=== PATIENT | female | born 1985 | race Two or more races ===

== ENCOUNTER 2022-10-10 16:00 | Observation (INO) | payer MEDICAID ==
[~2022-10-10] VITALS: Ht 149.9 cm; Wt 65.8 kg
[2022-10-10 18:01] LABS: Urine Bacteria NONE SEEN /hpf (None Seen); Urine Blood Negative /uL (Negative); Urine Clarity HAZY (Clear); Urine Color Yellow (Yellow); Urine Mucus FEW (None Seen); Urine Protein, UAD TRACE (Negative); Urine Specific Gravity 1.017 (1.001-1.035); Urine Urobilinogen Normal (Negative); Urine WBC 4 /hpf (0 - 5); Urine pH 6.5 (5.0-8.0)
[2022-10-10 18:03] LABS: Basophils # (auto) 0 10 ^3/uL (0-0.2); Basophils % (auto) 0.5 % (0.0-2.0); Eosinophils # (auto) 0 10 ^3/uL (0-0.8); Eosinophils % (auto) 0.3 % (0.0-7.0); Hematocrit 32.4 % (36.0-46.0); Hemoglobin 10.8 g/dL (12.2-16.2); Lymphocytes # (auto) 1.7 10 ^3/uL (0.4-5.4); Lymphocytes % (auto) 19.7 % (10.0-50.0); Mean Corpuscular Hgb Conc. 33.4 g/dL (32.0-36.0); Mean Corpuscular Volume 92.8 fL (80.0-100.0); Monocytes # (auto) 0.8 10 ^3/uL (0-1.3); Neutrophils # (auto) 6.1 10 ^3/uL (1.6-8.6); Neutrophils % (auto) 70.5 % (37.0-80.0); Nucleated Red Blood Cells % 0.1 %; Red Blood Cells 3.49 10^6/uL (4.0-5.20); Red Cell Distribution Width 13.3 % (11.8-14.3); White Blood Cell 8.7 10^3/uL (4.4-10.8)
[2022-10-10 18:06] LABS: Protein, Urine 26.2 mg/dL (0.0-11.9); Urine Protein/Creatinine Ratio 0.2
[2022-10-10] MEDS ORDERED: LABETALOL HCL 200 MG TAB PO STA (18:28)
[2022-10-10 18:29] LABS: INR 0.97 (0.9-1.15); Partial Thromboplastin Time 30.8 SEC (24.5-34.5); Prothrombin Time 10.2 sec (9.3-11.8)
[2022-10-10] MEDS ORDERED: LABETALOL HCL 200 MG TAB PO ONE (18:30)
[2022-10-10 18:32] LABS: Albumin 2.6 g/dL (3.4-5.0); Calcium 8.1 mg/dL (8.7-10.4); Potassium 3.4 mmol/L (3.5-5.1)
[2022-10-10 18:34] LABS: BUN/Creatinine Ratio 16.9 (10.0-20.0)
[2022-10-10 18:37] LABS: Bilirubin, Total 0.1 mg/dL (0.2-1.0); Total Protein 6.4 g/dL (6.4-8.2)
[2022-10-10] MEDS ORDERED: LABE200T6 GT (19:06)
[2022-10-10] MEDS ORDERED: PREN-96 PO (19:07)
[2022-10-10] MEDS ORDERED: LABE300T3 PO (19:49)
[2022-10-10 20:19] LABS: Uric Acid 3.6 mg/dL (2.6-6.0)
== END 2022-10-10 19:26 | disposition home or self-care (01) ==
LOC: UNDOADMOB 16:00 → LDRP 16:00 → UNDODISOB 19:26
PROVIDERS: ADMIT Obstetrics & Gynecology; ATTEND Obstetrics & Gynecology
DX: O13.3 Gestational [pregnancy-induced] hypertension without significant proteinuria, third trimester (principal); O26.893 Other specified pregnancy related conditions, third trimester; R42 Dizziness and giddiness; H53.8 Other visual disturbances; Z3A.31 31 weeks gestation of pregnancy
CPT/HCPCS: 36415; 59025; 76818; 80053; 81001; 81002; 82570; 84156; 84550; 85025; 85610; 85730; 94760; G0378

== ENCOUNTER 2022-10-12 07:34 | Observation (INO) | payer MEDICAID ==
[~2022-10-12 07:34] MED LIST: LABE300T3 PO; PREN-96 PO
[2022-10-12 11:23] LABS: Protein, Urine 17.5 mg/dL (0.0-11.9)
[2022-10-12 11:23] LABS: Protein, Urine 25.9 mg/dL (0.0-11.9)
[2022-10-12 11:26] LABS: Creatinine, Urine 75.37 mg/dL (30.0-125.0); Urine Protein/Creatinine Ratio 0.23
[2022-10-12 11:45] LABS: Urine Bacteria FEW /hpf (None Seen); Urine Blood Negative /uL (Negative); Urine Clarity HAZY (Clear); Urine Mucus FEW (None Seen); Urine Protein, UAD TRACE (Negative); Urine Specific Gravity 1.013 (1.001-1.035); Urine Urobilinogen Normal (Negative); Urine WBC 3 /hpf (0 - 5); Urine pH 6.5 (5.0-8.0)
[2022-10-12 11:51] LABS: Urine Color Straw (Yellow)
[2022-10-12 14:01] LABS: 24 Hr. Total Protein, Urine 213.6 mg/24 Hr (<149.1)
== END 2022-10-12 12:48 | disposition home or self-care (01) ==
LOC: UNDOADMOB 07:34 → LDRP 07:34
PROVIDERS: ADMIT Obstetrics & Gynecology; ATTEND Obstetrics & Gynecology
DX: O26.893 Other specified pregnancy related conditions, third trimester (principal); R03.0 Elevated blood-pressure reading, without diagnosis of hypertension; H53.8 Other visual disturbances; R42 Dizziness and giddiness; Z3A.32 32 weeks gestation of pregnancy
CPT/HCPCS: 59025; 81001; 81002; 82570; 84156; 94760; G0378

== ENCOUNTER 2022-10-27 11:35 | Observation (INO) | payer MEDICAID ==
[2022-10-27 12:41] LABS: Basophils # (auto) 0 10 ^3/uL (0-0.2); Basophils % (auto) 0.4 % (0.0-2.0); Eosinophils # (auto) 0 10 ^3/uL (0-0.8); Eosinophils % (auto) 0.4 % (0.0-7.0); Hematocrit 34.5 % (36.0-46.0); Hemoglobin 11.3 g/dL (12.2-16.2); Lymphocytes # (auto) 1.9 10 ^3/uL (0.4-5.4); Lymphocytes % (auto) 19.4 % (10.0-50.0); Mean Corpuscular Hemoglobin 30.8 pg (28.0-32.0); Mean Corpuscular Hgb Conc. 32.9 g/dL (32.0-36.0); Mean Corpuscular Volume 93.8 fL (80.0-100.0); Monocytes # (auto) 0.9 10 ^3/uL (0-1.3); Monocytes % (auto) 8.7 % (0.0-12.0); Neutrophils % (auto) 71.1 % (37.0-80.0); Red Blood Cells 3.68 10^6/uL (4.0-5.20); Red Cell Distribution Width 13.8 % (11.8-14.3); White Blood Cell 9.9 10^3/uL (4.4-10.8)
[2022-10-27 12:45] LABS: Urine Bacteria NONE SEEN /hpf (None Seen); Urine Blood Negative /uL (Negative); Urine Clarity Clear (Clear); Urine Color Straw (Yellow); Urine Protein, UAD Negative (Negative); Urine Specific Gravity 1.006 (1.001-1.035); Urine Urobilinogen Normal (Negative); Urine WBC 2 /hpf (0 - 5); Urine pH 6.5 (5.0-8.0)
[2022-10-27] MEDS ORDERED: BETAMETHASONE ACET (30mg/5ml) 5ml Vial 6mg/ml IM ONE (12:45)
[2022-10-27 12:56] LABS: INR 0.94 (0.9-1.15); Partial Thromboplastin Time 29.8 SEC (24.5-34.5); Prothrombin Time 9.9 sec (9.3-11.8)
[2022-10-27 13:08] LABS: Protein, Urine < 6.0 mg/dL (0.0-11.9)
[2022-10-27 13:09] LABS: Alanine Aminotransferase 26 U/L (7-40); Albumin 3.6 g/dL (3.2-4.8); Alkaline Phosphatase 109 U/L (46-116); Anion Gap 6.6 (5-15); Aspartate Aminotransferase 20 U/L (13-40); Bilirubin, Total 0.4 mg/dL (0.2-1.0); Blood Urea Nitrogen 9 mg/dL (9-23); Calcium 8.8 mg/dL (8.5-10.1); Carbon Dioxide 22.4 mmol/L (20-30); Chloride 110 mmol/L (98-107); Glucose 98 mg/dL (74-106); Potassium 4.2 mmol/L (3.5-5.1); Sodium 139 mmol/L (136-145); Total Protein 6.2 g/dL (5.7-8.2); Uric Acid 3.1 mg/dL (3.1-7.8)
[2022-10-27 13:10] LABS: Creatinine, Urine 21.36 mg/dL (30.0-125.0); Urine Protein/Creatinine Ratio 0.28
== END 2022-10-27 14:05 | disposition home or self-care (01) ==
LOC: LDRP 11:35 → UNDOADMOB 11:35 → LDRP 11:43
PROVIDERS: ADMIT Obstetrics & Gynecology; ATTEND Obstetrics & Gynecology
DX: O10.913 Unspecified pre-existing hypertension complicating pregnancy, third trimester (principal); O26.893 Other specified pregnancy related conditions, third trimester; R51.9 Headache, unspecified; Z3A.34 34 weeks gestation of pregnancy
CPT/HCPCS: 36415; 59025; 76818; 80053; 81001; 81002; 82570; 84156; 84550; 85025; 85362; 85379; 85610; 85730; 94760; 96372; G0378; J0702

== ENCOUNTER 2022-10-28 13:33 | Observation (INO) | payer MEDICAID ==
[~2022-10-28] VITALS: Ht 149.9 cm; Wt 74.8 kg
[2022-10-28] MEDS ORDERED: BETAMETHASONE ACET (30mg/5ml) 5ml Vial 6mg/ml IM ONE (14:00)
== END 2022-10-28 14:23 | disposition home or self-care (01) ==
LOC: UNDOADMOB 13:33 → LDRP 13:33
PROVIDERS: ADMIT Obstetrics & Gynecology; ATTEND Obstetrics & Gynecology
DX: O60.03 Preterm labor without delivery, third trimester (principal); Z3A.34 34 weeks gestation of pregnancy
CPT/HCPCS: 59025; 81002; 96372; G0378

== ENCOUNTER 2022-10-31 07:54 | Inpatient (IN) | payer MEDICAID ==
[~2022-10-31] VITALS: Ht 149.9 cm; Wt 68.9 kg
[2022-10-31] MEDS ORDERED: MAGNESIUM SULFATE 40MG/ML 1,000 ML IV SCH (09:30)
[2022-10-31] MEDS ORDERED: MAGNESIUM SULFATE 100 ML IV ONE (09:30)
[2022-10-31] MEDS ORDERED: LACTATED RINGER'S 1,000 ML IV SCH (09:45)
[2022-10-31 09:55] VITALS: RESP 18; O2SAT 97
[2022-10-31 10:08] LABS: INR 0.93 (0.9-1.15); Partial Thromboplastin Time 27.6 SEC (24.5-34.5); Prothrombin Time 9.8 sec (9.3-11.8)
[2022-10-31 10:11] LABS: Basophils # (auto) 0 10 ^3/uL (0-0.2); Basophils % (auto) 0.5 % (0.0-2.0); Eosinophils # (auto) 0 10 ^3/uL (0-0.8); Eosinophils % (auto) 0.2 % (0.0-7.0); Hematocrit 34.3 % (36.0-46.0); Hemoglobin 11.4 g/dL (12.2-16.2); Lymphocytes # (auto) 1.9 10 ^3/uL (0.4-5.4); Lymphocytes % (auto) 19.1 % (10.0-50.0); Mean Corpuscular Hemoglobin 31.6 pg (28.0-32.0); Mean Corpuscular Hgb Conc. 33.1 g/dL (32.0-36.0); Mean Corpuscular Volume 95.4 fL (80.0-100.0); Monocytes # (auto) 1.1 10 ^3/uL (0-1.3); Monocytes % (auto) 11.1 % (0.0-12.0); Neutrophils # (auto) 7.1 10 ^3/uL (1.6-8.6); Neutrophils % (auto) 69.1 % (37.0-80.0); Red Cell Distribution Width 14.1 % (11.8-14.3); White Blood Cell 10.2 10^3/uL (4.4-10.8)
[2022-10-31 10:13] LABS: Alanine Aminotransferase 33 U/L (7-40); Albumin 3.4 g/dL (3.2-4.8); Alkaline Phosphatase 102 U/L (46-116); Anion Gap 9.7 (5-15); Aspartate Aminotransferase 28 U/L (13-40); BUN/Creatinine Ratio 23.6 (10.0-20.0); Blood Urea Nitrogen 13 mg/dL (9-23); Calcium 8.6 mg/dL (8.5-10.1); Carbon Dioxide 19.3 mmol/L (20-30); Chloride 110 mmol/L (98-107); Glucose 111 mg/dL (74-106); Magnesium 1.5 mg/dL (1.6-2.6); Potassium 3.7 mmol/L (3.5-5.1); Sodium 139 mmol/L (136-145); Uric Acid 3.5 mg/dL (3.1-7.8)
[2022-10-31 10:14] LABS: Bilirubin, Total 0.3 mg/dL (0.2-1.0); Total Protein 5.6 g/dL (5.7-8.2)
[2022-10-31 10:39] LABS: Protein, Urine 14.4 mg/dL (0.0-11.9)
[2022-10-31 10:42] LABS: Creatinine, Urine 59.14 mg/dL (30.0-125.0); Urine Protein/Creatinine Ratio 0.24
[2022-10-31 10:43] LABS: Amphetamine Screen, Urine Neg (NEGATIVE)
[2022-10-31 10:45] LABS: Barbiturate Scree,Urine Neg (NEGATIVE); Benzodiazephine Screen, Urine Neg (NEGATIVE); Cocaine Screen, Urine Neg (NEGATIVE); Opiate Scree,Urine Neg (NEGATIVE); Phencyclidine Screen, Urine Neg (NEGATIVE)
[2022-10-31 10:46] LABS: Cannabinoid Screen, Urine Neg (NEGATIVE)
[2022-10-31 10:56] LABS: Urine Bacteria NONE SEEN /hpf (None Seen); Urine Blood Negative /uL (Negative); Urine Clarity Clear (Clear); Urine Protein, UAD Negative (Negative); Urine Specific Gravity 1.014 (1.001-1.035); Urine Urobilinogen Normal (Negative); Urine WBC 2 /hpf (0 - 5); Urine pH 6.5 (5.0-8.0)
[2022-10-31 10:57] LABS: Urine Color Straw (Yellow)
== END 2022-10-31 12:05 | disposition home or self-care (01) | DRG 566 ==
LOC: LDRP 08:13 → OBSVTOIN 09:30 → LDRP 09:31
PROVIDERS: ADMIT Obstetrics & Gynecology; ATTEND Obstetrics & Gynecology
DX: O13.3 Gestational [pregnancy-induced] hypertension without significant proteinuria, third trimester (principal); Z3A.34 34 weeks gestation of pregnancy
CPT/HCPCS: 36415; 59025; 76818; 80053; 80307; 81001; 81002; 82570; 83735; 84156; 84550; 85025; 85379; 85610; 85730; 86850; 86900; 86901; 94760; 96360; 96361; 96365; 96366; G0378

== ENCOUNTER 2022-11-04 11:12 | Observation (INO) | payer MEDICAID ==
[2022-11-04 12:21] LABS: Protein, Urine 15.7 mg/dL (0.0-11.9)
[2022-11-04 12:24] LABS: Creatinine, Urine 73.53 mg/dL (30.0-125.0); Urine Protein/Creatinine Ratio 0.21
[2022-11-04 12:26] LABS: Alanine Aminotransferase 17 U/L (7-40); Albumin 3.6 g/dL (3.2-4.8); Alkaline Phosphatase 115 U/L (46-116); Anion Gap 4 (5-15); Aspartate Aminotransferase 9 U/L (13-40); BUN/Creatinine Ratio 21.5 (10.0-20.0); Blood Urea Nitrogen 14 mg/dL (9-23); Calcium 9.5 mg/dL (8.5-10.1); Carbon Dioxide 25 mmol/L (20-30); Chloride 109 mmol/L (98-107); Glucose 92 mg/dL (74-106); Potassium 4.4 mmol/L (3.5-5.1); Sodium 138 mmol/L (136-145); Uric Acid 3.9 mg/dL (3.1-7.8)
[2022-11-04 12:27] LABS: Bilirubin, Total 0.4 mg/dL (0.2-1.0); Total Protein 6.2 g/dL (5.7-8.2)
[2022-11-04 12:33] LABS: Basophils # (auto) 0 10 ^3/uL (0-0.2); Basophils % (auto) 0.5 % (0.0-2.0); Eosinophils # (auto) 0 10 ^3/uL (0-0.8); Eosinophils % (auto) 0.2 % (0.0-7.0); Hematocrit 32.7 % (36.0-46.0); Hemoglobin 11.3 g/dL (12.2-16.2); Lymphocytes % (auto) 19.4 % (10.0-50.0); Mean Corpuscular Hemoglobin 32.4 pg (28.0-32.0); Mean Corpuscular Hgb Conc. 34.5 g/dL (32.0-36.0); Mean Corpuscular Volume 93.9 fL (80.0-100.0); Monocytes % (auto) 9.8 % (0.0-12.0); Neutrophils # (auto) 7.3 10 ^3/uL (1.6-8.6); Neutrophils % (auto) 70.1 % (37.0-80.0); Nucleated Red Blood Cells % 0.1 %; Red Blood Cells 3.48 10^6/uL (4.0-5.20); Red Cell Distribution Width 13.8 % (11.8-14.3); White Blood Cell 10.4 10^3/uL (4.4-10.8)
[2022-11-04 12:33] LABS: Urine Bacteria NONE SEEN /hpf (None Seen); Urine Blood Negative /uL (Negative); Urine Clarity Clear (Clear); Urine Color Yellow (Yellow); Urine Mucus FEW (None Seen); Urine Protein, UAD TRACE (Negative); Urine Urobilinogen Normal (Negative); Urine WBC 4 /hpf (0 - 5)
[2022-11-04 12:44] LABS: INR 0.91 (0.9-1.15); Partial Thromboplastin Time 27.5 SEC (24.5-34.5); Prothrombin Time 9.6 sec (9.3-11.8)
== END 2022-11-04 14:10 | disposition home or self-care (01) ==
LOC: UNDOADMOB 11:12 → LDRP 11:12 → UNDODISOB 14:10
PROVIDERS: ADMIT Obstetrics & Gynecology; ATTEND Obstetrics & Gynecology
DX: O14.93 Unspecified pre-eclampsia, third trimester (principal); O24.419 Gestational diabetes mellitus in pregnancy, unspecified control; O13.3 Gestational [pregnancy-induced] hypertension without significant proteinuria, third trimester; Z3A.35 35 weeks gestation of pregnancy
CPT/HCPCS: 36415; 59025; 76805; 76818; 80053; 81001; 81002; 82570; 82962; 84156; 84550; 85025; 85610; 85730; 94760; G0378

== ENCOUNTER 2022-11-08 10:00 | Observation (INO) | payer MEDICAID ==
[2022-11-08] MEDS ORDERED: LABE200T7 PO (11:56)
== END 2022-11-08 12:06 | disposition home or self-care (01) ==
LOC: LDRP 10:00 → UNDOADMOB 10:00 → LDRP 10:28
PROVIDERS: ADMIT Obstetrics & Gynecology; ATTEND Obstetrics & Gynecology
DX: O34.33 Maternal care for cervical incompetence, third trimester (principal); O24.419 Gestational diabetes mellitus in pregnancy, unspecified control; O13.3 Gestational [pregnancy-induced] hypertension without significant proteinuria, third trimester; Z3A.36 36 weeks gestation of pregnancy
CPT/HCPCS: 59025; 76818; 81002; 82948; 82962; 94760; G0378

== ENCOUNTER 2022-11-11 10:15 | Observation (INO) | payer MEDICAID ==
[~2022-11-11 10:15] MED LIST changes: +LABE200T7 PO
== END 2022-11-11 12:59 | disposition home or self-care (01) ==
LOC: LDRP 11:18 → UNDOADMOB 11:18 → LDRP 11:26
PROVIDERS: ADMIT Obstetrics & Gynecology; ATTEND Obstetrics & Gynecology
DX: O24.419 Gestational diabetes mellitus in pregnancy, unspecified control (principal); O13.3 Gestational [pregnancy-induced] hypertension without significant proteinuria, third trimester; Z3A.36 36 weeks gestation of pregnancy
CPT/HCPCS: 76818; 82962; G0378; 59025; 81002; 82948; 94760

== ENCOUNTER 2022-11-17 16:00 | Observation (INO) | payer MEDICAID ==
[2022-11-17 18:36] LABS: Basophils # (auto) 0 10 ^3/uL (0-0.2); Basophils % (auto) 0.5 % (0.0-2.0); Eosinophils # (auto) 0 10 ^3/uL (0-0.8); Eosinophils % (auto) 0.3 % (0.0-7.0); Hematocrit 35.5 % (36.0-46.0); Hemoglobin 12.1 g/dL (12.2-16.2); Lymphocytes # (auto) 2.2 10 ^3/uL (0.4-5.4); Lymphocytes % (auto) 23.3 % (10.0-50.0); Mean Corpuscular Hemoglobin 32.1 pg (28.0-32.0); Mean Corpuscular Hgb Conc. 34.2 g/dL (32.0-36.0); Mean Corpuscular Volume 93.8 fL (80.0-100.0); Monocytes # (auto) 0.8 10 ^3/uL (0-1.3); Neutrophils # (auto) 6.3 10 ^3/uL (1.6-8.6); Neutrophils % (auto) 66.9 % (37.0-80.0); Red Blood Cells 3.79 10^6/uL (4.0-5.20); Red Cell Distribution Width 13.5 % (11.8-14.3); White Blood Cell 9.3 10^3/uL (4.4-10.8)
[2022-11-17 18:56] LABS: INR 0.92 (0.9-1.15); Partial Thromboplastin Time 28.5 SEC (24.5-34.5); Prothrombin Time 9.7 sec (9.3-11.8)
[2022-11-17 19:03] LABS: Alanine Aminotransferase 14 U/L (7-40); Albumin 3.9 g/dL (3.2-4.8); Alkaline Phosphatase 167 U/L (46-116); Anion Gap 9 (5-15); Aspartate Aminotransferase 12 U/L (13-40); BUN/Creatinine Ratio 15.2 (10.0-20.0); Blood Urea Nitrogen 12 mg/dL (9-23); Calcium 9.5 mg/dL (8.7-10.4); Carbon Dioxide 24 mmol/L (20-30); Chloride 107 mmol/L (98-107); Glucose 81 mg/dL (74-106); Potassium 4.5 mmol/L (3.5-5.1); Sodium 140 mmol/L (136-145); Uric Acid 4.3 mg/dL (3.1-7.8)
[2022-11-17 19:04] LABS: Bilirubin, Total 0.3 mg/dL (0.2-1.0); Total Protein 6.8 g/dL (5.7-8.2)
[2022-11-17 19:04] LABS: Protein, Urine 15.7 mg/dL (0.0-11.9)
[2022-11-17 19:06] LABS: Creatinine, Urine 86.54 mg/dL (30.0-125.0); Urine Protein/Creatinine Ratio 0.18
== END 2022-11-17 18:30 | disposition home or self-care (01) ==
LOC: UNDOADMOB 16:00 → LDRP 16:00
PROVIDERS: ADMIT Obstetrics & Gynecology; ATTEND Obstetrics & Gynecology
DX: O24.419 Gestational diabetes mellitus in pregnancy, unspecified control (principal); O10.913 Unspecified pre-existing hypertension complicating pregnancy, third trimester; Z3A.37 37 weeks gestation of pregnancy
CPT/HCPCS: 36415; 59025; 76818; 80053; 81002; 82570; 84156; 84550; 85025; 85610; 85730; 94760; G0378

== ENCOUNTER 2022-11-21 10:18 | Observation (INO) | payer MEDICAID ==
[~2022-11-21 10:18] MED LIST changes: -LABE200T7 PO
== END 2022-11-21 12:47 | disposition home or self-care (01) ==
LOC: UNDOADMOB 10:18 → LDRP 10:18
PROVIDERS: ADMIT Obstetrics & Gynecology; ATTEND Obstetrics & Gynecology
DX: O13.3 Gestational [pregnancy-induced] hypertension without significant proteinuria, third trimester (principal); O24.419 Gestational diabetes mellitus in pregnancy, unspecified control; Z3A.37 37 weeks gestation of pregnancy
CPT/HCPCS: 59025; 76818; 81002; 82948; 94760; G0378

== ENCOUNTER 2022-11-24 10:07 | Inpatient (IN) | payer MEDICAID ==
[~2022-11-24] VITALS: Ht 149.9 cm; Wt 68.0 kg
[2022-11-24] MEDS ORDERED: LACTATED RINGER'S 1,000 ML IV ONE (11:30)
[2022-11-24 12:11] LABS: Basophils # (auto) 0 10 ^3/uL (0-0.2); Basophils % (auto) 0.4 % (0.0-2.0); Eosinophils # (auto) 0 10 ^3/uL (0-0.8); Eosinophils % (auto) 0.2 % (0.0-7.0); Hematocrit 35.3 % (36.0-46.0); Lymphocytes # (auto) 1.8 10 ^3/uL (0.4-5.4); Lymphocytes % (auto) 16.1 % (10.0-50.0); Mean Corpuscular Hemoglobin 31.8 pg (28.0-32.0); Mean Corpuscular Hgb Conc. 33.9 g/dL (32.0-36.0); Mean Corpuscular Volume 93.8 fL (80.0-100.0); Monocytes # (auto) 0.7 10 ^3/uL (0-1.3); Monocytes % (auto) 6.6 % (0.0-12.0); Neutrophils # (auto) 8.5 10 ^3/uL (1.6-8.6); Neutrophils % (auto) 76.7 % (37.0-80.0); Red Blood Cells 3.76 10^6/uL (4.0-5.20); Red Cell Distribution Width 13.6 % (11.8-14.3); White Blood Cell 11.1 10^3/uL (4.4-10.8)
[2022-11-24 12:23] LABS: INR 0.93 (0.9-1.15); Partial Thromboplastin Time 27.9 SEC (24.5-34.5); Prothrombin Time 9.8 sec (9.3-11.8)
[2022-11-24 12:29] LABS: Alanine Aminotransferase 13 U/L (7-40); Albumin 3.7 g/dL (3.2-4.8); Alkaline Phosphatase 162 U/L (46-116); Anion Gap 6 (5-15); Aspartate Aminotransferase 14 U/L (13-40); BUN/Creatinine Ratio 12.3 (10.0-20.0); Bilirubin, Total 0.4 mg/dL (0.2-1.0); Blood Urea Nitrogen 9 mg/dL (9-23); Carbon Dioxide 21 mmol/L (20-30); Chloride 109 mmol/L (98-107); Glucose 105 mg/dL (74-106); Sodium 136 mmol/L (136-145); Total Protein 6.4 g/dL (5.7-8.2); Uric Acid 4.5 mg/dL (3.1-7.8)
[2022-11-24 12:29] LABS: Urine Bacteria FEW /hpf (None Seen); Urine Blood Negative /uL (Negative); Urine Clarity Clear (Clear); Urine Color Yellow (Yellow); Urine Protein, UAD TRACE (Negative); Urine Specific Gravity 1.019 (1.001-1.035); Urine Sperm PRESENT /hpf (None Seen); Urine Urobilinogen Normal (Negative); Urine WBC 2 /hpf (0 - 5); Urine pH 6.5 (5.0-8.0)
[2022-11-24 12:33] LABS: Protein, Urine 20.6 mg/dL (0.0-11.9)
[2022-11-24 12:35] LABS: Creatinine, Urine 104.96 mg/dL (30.0-125.0); Urine Protein/Creatinine Ratio 0.2
[2022-11-24] MEDS ORDERED: WITCH HAZEL-GLYCERIN PAD TOP PRN (13:15)
[2022-11-24] MEDS ORDERED: LIDOCAINE 2%HCL (LOCAL ANESTH.) INJ 20ML MDV IJ PRN (13:15)
[2022-11-24] MEDS ORDERED: DERMOPLAST 60ML BOTTLE TOP PRN (13:15)
[2022-11-24] MEDS ORDERED: PROMETHAZINE HCL 25 MG/ML 1ML IV PRN (13:15)
[2022-11-24] MEDS ORDERED: BUTORPHANOL TARTRATE 2 MG/1 ML VIAL IV PRN ×2 (13:15)
[2022-11-24] MEDS ORDERED: PHISODERM TOP SOLN 240ML BTL TOP PRN (13:15)
[2022-11-24] MEDS: LACTATED RINGER'S 1,000 ML IV SCH (13:24)
[2022-11-24] MEDS ORDERED: LACT. RINGERS/OXYTOCIN 20UNITS 500 ML IV ONE ×2 (13:30→14:00)
[2022-11-24] MEDS ORDERED: miSOPROStol 100 mcg TAB SL PRN ×2 (14:15→23:45)
[2022-11-24] MEDS ORDERED: miSOPROStol 100 mcg TAB PR PRN (14:15)
[2022-11-24] MEDS: miSOPROStol 50 MCG per PRE-CUT 1/2 TAB PO PRN ×3 (14:15→23:06)
[2022-11-24] MEDS ORDERED: TRANEXAMIC ACID 1,000 MG in SODIUM CHL 0.9% 100 ML IV ONE (14:15)
[2022-11-24] MEDS ORDERED: CARBOPROST TROMETHAMINE 250 MCG/1ML VIAL IM PRN ×2 (14:15→23:15)
[2022-11-24] MEDS ORDERED: METHYLERGONOVINE MALEATE 0.2 MG/ML AMP IM PRN (14:15)
[2022-11-24] MEDS: hydrALAZINE HCL 20 MG/ML VL IV PRN ×3 (14:20→15:45)
[2022-11-24 15:03] LABS: Amphetamine Screen, Urine Neg (NEGATIVE); Barbiturate Scree,Urine Neg (NEGATIVE); Benzodiazephine Screen, Urine Neg (NEGATIVE); Cocaine Screen, Urine Neg (NEGATIVE); Opiate Scree,Urine Neg (NEGATIVE)
[2022-11-24 15:04] LABS: Cannabinoid Screen, Urine Neg (NEGATIVE); Phencyclidine Screen, Urine Neg (NEGATIVE)
[2022-11-24] MEDS ORDERED: MAGNESIUM SULFATE 40MG/ML 1,000 ML IV ONE (15:45)
[2022-11-24] MEDS ORDERED: MAGNESIUM SULFATE 100 ML IV ONE ×2 (15:45)
[2022-11-24] MEDS ORDERED: MAGNESIUM SULFATE 40MG/ML 1,000 ML IV SCH (15:45)
[2022-11-24] MEDS: LABETALOL HCL 200 MG TAB PO SCH (20:00)
[2022-11-24] MEDS ORDERED: D5W/LACTATED RINGERS 1,000 ML IV SCH (20:30)
[2022-11-24] MEDS: DIPHENOXYLATE W/ATROPINE 2.5 MG TAB PO SCH (22:00)
[2022-11-24] MEDS ORDERED: ONDANSETRON HCL 4 MG/2 ML VIAL ONE (22:13)
[2022-11-24] MEDS: ONDANSETRON HCL 4 MG/2 ML VIAL IV PRN (22:18)
[2022-11-24] MEDS ORDERED: diphenhdrAMINE HCL 50 MG/1 ML VL IV PRN (23:45)
[2022-11-24] MEDS ORDERED: fentaNYL CITRATE 100 MCG/2 ML VL IV PRN (23:45)
[2022-11-24] MEDS ORDERED: PROMETHAZINE HCL 25 MG/ML 1ML IM PRN (23:45)
[2022-11-24] MEDS ORDERED: MINERAL OIL TOPICAL 10ml TOP PRN (23:45)
[2022-11-25] VITALS (11 sets, daily range): BP systolic 102–134; BP diastolic 52–86; PULSE 60–83; RESP 15–18; TEMP 98–98.1; O2SAT 94–100
[2022-11-25] MEDS: hydrALAZINE HCL 20 MG/ML VL IV PRN (01:11)
[2022-11-25] MEDS: LABETALOL HCL 200 MG TAB PO SCH ×3 (01:24→22:55)
[2022-11-25] MEDS: ONDANSETRON HCL 4 MG/2 ML VIAL IV PRN (02:26)
[2022-11-25] MEDS: miSOPROStol 50 MCG per PRE-CUT 1/2 TAB PO PRN (03:08)
[2022-11-25 07:07] LABS: RPR Non Reactive (Non Reactive)
[2022-11-25] MEDS ORDERED: fentaNYL CITRATE 100 MCG/2 ML VL IV STA (07:35)
[2022-11-25] MEDS: LACTATED RINGER'S 1,000 ML IV SCH ×3 (07:39→21:15)
[2022-11-25] MEDS ORDERED: LACT. RINGERS/OXYTOCIN 20UNITS 1,000 ML IV SCH ×2 (07:45→14:30)
[2022-11-25] MEDS ORDERED: LACT. RINGERS/OXYTOCIN 20UNITS 500 ML IV ONE ×2 (07:45→08:15)
[2022-11-25] MEDS ORDERED: TERBUTALINE SULFATE 1 MG/ML 1ML VIAL SC PRN (07:45)
[2022-11-25] MEDS: DIPHENOXYLATE W/ATROPINE 2.5 MG TAB PO SCH ×2 (10:00→22:00)
[2022-11-25] MEDS ORDERED: ePHEDrine SULFATE 50 MG/ML AMP IV ONE (10:15)
[2022-11-25] MEDS ORDERED: NALOXONE HCL 0.4 MG/ML VIAL IV ONE (10:15)
[2022-11-25] MEDS ORDERED: ROPIVACAINE HCL 200 ML EPI SCH (10:15)
[2022-11-25] MEDS ORDERED: fentaNYL CITRATE 100 MCG/2 ML VL IV ONE (10:15)
[2022-11-25] MEDS ORDERED: LACTATED RINGER'S 500 ML IV ONE (10:15)
[2022-11-25] MEDS ORDERED: ceFAZolin 2 GM/D5W100ml 100 ML IV ONE (12:15)
[2022-11-25] MEDS ORDERED: TETRACAINE 1% INJ 2 ML VIAL IJ ONE (12:58)
[2022-11-25] MEDS ORDERED: MIDAZOLAM HCL 2MG/2ML 2ml VIAL (1mg/ml) ONE (13:27)
[2022-11-25] MEDS ORDERED: fentaNYL CITRATE 100 MCG/2 ML VL ONE (13:27)
[2022-11-25] MEDS ORDERED: MORPHINE SULF PF 5 MG/10 ML VIAL ONE (13:44)
[2022-11-25] MEDS ORDERED: MIDAZOLAM HCL 2MG/2ML 2ml VIAL (1mg/ml) IV PRN (14:30)
[2022-11-25] MEDS ORDERED: HYDROmorphone HCL 2 MG/ML VL/or syr IV PRN ×3 (14:30)
[2022-11-25] MEDS ORDERED: NALOXONE HCL 0.4 MG/ML VIAL IV PRN (14:30)
[2022-11-25] MEDS ORDERED: ePHEDrine SULFATE 50 MG/ML AMP IV PRN (14:30)
[2022-11-25] MEDS ORDERED: LABETALOL HCL 5 MG/ML 4ML SYRINGE IV PRN (14:30)
[2022-11-25] MEDS ORDERED: ONDANSETRON HCL 4 MG/2 ML VIAL IV PRN ×2 (14:30)
[2022-11-25] MEDS ORDERED: KETOROLAC TROMETH 30 MG/ML 1ML VIAL IV PRN (14:30)
[2022-11-25 16:02] LABS: Basophils # (auto) 0 10 ^3/uL (0-0.2); Basophils % (auto) 0.2 % (0.0-2.0); Eosinophils # (auto) 0 10 ^3/uL (0-0.8); Eosinophils % (auto) 0.1 % (0.0-7.0); Hemoglobin 12.4 g/dL (12.2-16.2); Lymphocytes # (auto) 1.1 10 ^3/uL (0.4-5.4); Lymphocytes % (auto) 8.6 % (10.0-50.0); Mean Corpuscular Hemoglobin 31.6 pg (28.0-32.0); Mean Corpuscular Hgb Conc. 33.5 g/dL (32.0-36.0); Mean Corpuscular Volume 94.3 fL (80.0-100.0); Monocytes # (auto) 0.8 10 ^3/uL (0-1.3); Neutrophils # (auto) 10.8 10 ^3/uL (1.6-8.6); Neutrophils % (auto) 85.1 % (37.0-80.0); Nucleated Red Blood Cells % 0.1 %; Red Blood Cells 3.93 10^6/uL (4.0-5.20); Red Cell Distribution Width 13.5 % (11.8-14.3); White Blood Cell 12.7 10^3/uL (4.4-10.8)
[2022-11-25 16:04] LABS: Urine Bacteria NONE SEEN /hpf (None Seen); Urine Blood 2+ /uL (Negative); Urine Clarity Clear (Clear); Urine Color Colorless (Yellow); Urine Mucus FEW (None Seen); Urine Protein, UAD Negative (Negative); Urine Specific Gravity 1.011 (1.001-1.035); Urine Urobilinogen Normal (Negative); Urine WBC 1 /hpf (0 - 5)
[2022-11-25] MEDS ORDERED: ONDANSETRON HCL 4 MG/2 ML VIAL ONE (16:14)
[2022-11-25] MEDS ORDERED: ONDANSETRON HCL 4 MG/2 ML VIAL IM ONE (16:15)
[2022-11-25] MEDS ORDERED: diphenhdrAMINE HCL 50 MG/1 ML VL IV PRN (17:30)
[2022-11-25] MEDS: ACETAMINOPHEN IV 1000 MG/100ML (10MG/ML) IV PRN (17:44)
[2022-11-25] MEDS ORDERED: LABETALOL HCL 200 MG TAB PO SCH (22:00)
[2022-11-25] MEDS: ceFAZolin 1GM/50ML 50 ML IV SCH ×2 (22:30→22:53)
[2022-11-26] VITALS (19 sets, daily range): BP systolic 97–155; BP diastolic 53–94; PULSE 53–97; RESP 16–20; TEMP 97.9–100.9; O2SAT 94–99
[2022-11-26] MEDS: ACETAMINOPHEN IV 1000 MG/100ML (10MG/ML) IV PRN ×2 (02:25→10:35)
[2022-11-26] MEDS: LACTATED RINGER'S 1,000 ML IV SCH ×2 (05:15→05:39)
[2022-11-26 05:29] LABS: Basophils # (auto) 0 10 ^3/uL (0-0.2); Basophils % (auto) 0.1 % (0.0-2.0); Eosinophils # (auto) 0 10 ^3/uL (0-0.8); Eosinophils % (auto) 0.1 % (0.0-7.0); Hematocrit 33.4 % (36.0-46.0); Hemoglobin 11.1 g/dL (12.2-16.2); Lymphocytes # (auto) 0.8 10 ^3/uL (0.4-5.4); Lymphocytes % (auto) 5.9 % (10.0-50.0); Mean Corpuscular Hemoglobin 31.4 pg (28.0-32.0); Mean Corpuscular Hgb Conc. 33.2 g/dL (32.0-36.0); Mean Corpuscular Volume 94.6 fL (80.0-100.0); Monocytes # (auto) 0.9 10 ^3/uL (0-1.3); Monocytes % (auto) 6.3 % (0.0-12.0); Neutrophils # (auto) 12.1 10 ^3/uL (1.6-8.6); Neutrophils % (auto) 87.6 % (37.0-80.0); Red Blood Cells 3.53 10^6/uL (4.0-5.20); Red Cell Distribution Width 13.7 % (11.8-14.3); White Blood Cell 13.8 10^3/uL (4.4-10.8)
[2022-11-26] MEDS ORDERED: ceFAZolin 1GM/50ML 50 ML IV ONE (07:15)
[2022-11-26] MEDS: LABETALOL HCL 200 MG TAB PO SCH ×2 (10:51→22:44)
[2022-11-26] MEDS ORDERED: BISACODYL 10 MG RECT SUPP PR PRN (13:00)
[2022-11-26] MEDS: DOCUSATE SOD 100 MG CAP PO SCH ×2 (13:16→22:53)
[2022-11-26] MEDS: DOCUSATE CALCIUM 240 MG CAP PO SCH (13:17)
[2022-11-26] MEDS: HYDROcodone-ACET 5/325MG TAB PO PRN (14:52)
[2022-11-26] MEDS ORDERED: PIPERACILLIN-TAZOB 3.375GM 100 ML IV SCH ×2 (16:00→18:00)
[2022-11-26] MEDS: IBUPROFEN 800 MG TAB PO PRN (16:16)
[2022-11-26] MEDS: SIMETHICONE 80 MG CHEWABLE TABLET PO SCH ×2 (17:41→22:44)
[2022-11-26] MEDS: PIPERACILLIN-TAZOB 3.375GM 100 ML IV SCH (22:44)
[2022-11-27] VITALS (10 sets, daily range): BP systolic 118–174; BP diastolic 70–97; PULSE 60–85; RESP 16–18; TEMP 97.5–99.5; O2SAT 96–100
[2022-11-27] MEDS: IBUPROFEN 800 MG TAB PO PRN ×3 (00:41→20:37)
[2022-11-27] MEDS: PIPERACILLIN-TAZOB 3.375GM 100 ML IV SCH ×3 (05:18→17:30)
[2022-11-27] MEDS: SIMETHICONE 80 MG CHEWABLE TABLET PO SCH ×4 (07:00→22:30)
[2022-11-27 07:06] LABS: Chlamydia Trachomatis, NAA Negative (Negative); Neisseria gonorrhoeae, NAA Negative (Negative)
[2022-11-27] MEDS: DOCUSATE CALCIUM 240 MG CAP PO SCH (09:52)
[2022-11-27] MEDS: LABETALOL HCL 200 MG TAB PO SCH ×2 (09:55→21:34)
[2022-11-27] MEDS: DOCUSATE SOD 100 MG CAP PO SCH ×2 (10:04→22:30)
[2022-11-27] MEDS: HYDROcodone-ACET 5/325MG TAB PO PRN ×4 (11:25→22:50)
[2022-11-27] MEDS: hydrALAZINE HCL 20 MG/ML VL IV PRN ×2 (20:27→22:52)
[2022-11-27 23:36] LABS: Basophils # (auto) 0 10 ^3/uL (0-0.2); Basophils % (auto) 0.7 % (0.0-2.0); Eosinophils # (auto) 0.1 10 ^3/uL (0-0.8); Eosinophils % (auto) 1.4 % (0.0-7.0); Hematocrit 32.1 % (36.0-46.0); Hemoglobin 10.9 g/dL (12.2-16.2); Lymphocytes # (auto) 1.3 10 ^3/uL (0.4-5.4); Lymphocytes % (auto) 18.5 % (10.0-50.0); Mean Corpuscular Hemoglobin 31.8 pg (28.0-32.0); Mean Corpuscular Hgb Conc. 33.9 g/dL (32.0-36.0); Mean Corpuscular Volume 93.9 fL (80.0-100.0); Monocytes # (auto) 0.7 10 ^3/uL (0-1.3); Monocytes % (auto) 10.4 % (0.0-12.0); Neutrophils # (auto) 4.8 10 ^3/uL (1.6-8.6); Red Blood Cells 3.42 10^6/uL (4.0-5.20); Red Cell Distribution Width 13.7 % (11.8-14.3)
[2022-11-27 23:48] LABS: Alanine Aminotransferase 35 U/L (7-40); Alkaline Phosphatase 188 U/L (46-116); Anion Gap 7 (5-15); Aspartate Aminotransferase 52 U/L (13-40); BUN/Creatinine Ratio 20.3 (10.0-20.0); Blood Urea Nitrogen 13 mg/dL (9-23); Calcium 8.6 mg/dL (8.5-10.1); Carbon Dioxide 22 mmol/L (20-30); Chloride 112 mmol/L (98-107); Glucose 70 mg/dL (74-106); Potassium 4.2 mmol/L (3.5-5.1); Sodium 141 mmol/L (136-145)
[2022-11-27 23:49] LABS: Bilirubin, Total 0.4 mg/dL (0.2-1.0); Total Protein 5.2 g/dL (5.7-8.2)
[2022-11-27 23:50] LABS: INR 0.96 (0.9-1.15); Partial Thromboplastin Time 32.4 SEC (24.5-34.5); Prothrombin Time 10.1 sec (9.3-11.8)
[2022-11-28] VITALS (11 sets, daily range): BP systolic 120–155; BP diastolic 74–100; PULSE 61–78; RESP 16–20; TEMP 97.6–98; O2SAT 95–98
[2022-11-28 01:13] LABS: Protein, Urine 25.8 mg/dL (0.0-11.9)
[2022-11-28 01:16] LABS: Creatinine, Urine 39.06 mg/dL (30.0-125.0); Urine Protein/Creatinine Ratio 0.66
[2022-11-28 01:46] LABS: Urine Bacteria NONE SEEN /hpf (None Seen); Urine Blood 1+ /uL (Negative); Urine Clarity Clear (Clear); Urine Color Colorless (Yellow); Urine Protein, UAD Negative (Negative); Urine Specific Gravity 1.016 (1.001-1.035); Urine Urobilinogen Normal (Negative); Urine WBC 4 /hpf (0 - 5)
[2022-11-28] MEDS: PIPERACILLIN-TAZOB 3.375GM 100 ML IV SCH ×2 (02:00→13:24)
[2022-11-28] MEDS: IBUPROFEN 800 MG TAB PO PRN (04:07)
[2022-11-28] MEDS: HYDROcodone-ACET 5/325MG TAB PO PRN ×3 (05:32→22:32)
[2022-11-28] MEDS: LABETALOL HCL 200 MG TAB PO SCH ×3 (05:33→22:34)
[2022-11-28] MEDS: SIMETHICONE 80 MG CHEWABLE TABLET PO SCH ×4 (06:00→22:35)
[2022-11-28] MEDS ORDERED: POTASSIUM CHL 20 Meq TABLET PO SCH (10:00)
[2022-11-28] MEDS: MILK OF MAGNESIA 30ML SUSP PO SCH ×2 (10:00→22:00)
[2022-11-28] MEDS ORDERED: FUROSEMIDE 40 MG TAB PO SCH (10:00)
[2022-11-28] MEDS: DOCUSATE CALCIUM 240 MG CAP PO SCH (10:36)
[2022-11-28] MEDS: DOCUSATE SOD 100 MG CAP PO SCH ×2 (10:36→22:35)
[2022-11-28] MEDS ORDERED: PIPERACILLIN-TAZOB 3.375GM 100 ML IV SCH (19:30)
[2022-11-28 20:06] LABS: Treponema pallidum Ab (FTA-Ab) Non Reactive (Non Reactive)
[2022-11-28] MEDS: FUROSEMIDE 40 MG TAB PO SCH (22:38)
[2022-11-29 03:03] VITALS: BP 140/81; PULSE 70; RESP 16; TEMP 98; O2SAT 97
[2022-11-29] MEDS: IBUPROFEN 800 MG TAB PO PRN (03:04)
[2022-11-29] MEDS: HYDROcodone-ACET 5/325MG TAB PO PRN (05:24)
[2022-11-29] MEDS: SIMETHICONE 80 MG CHEWABLE TABLET PO SCH ×2 (05:30→12:00)
[2022-11-29] MEDS ORDERED: NIFE1TAB31 PO (06:34)
[2022-11-29] MEDS ORDERED: HYDR-4902 PO (06:37)
[2022-11-29] MEDS ORDERED: IBUP-1455 PO (06:37)
[2022-11-29] MEDS ORDERED: LABE200T6 PO (06:37)
[2022-11-29 06:55] VITALS: BP 152/79; PULSE 66; RESP 16; RESP 20; TEMP 97.8; O2SAT 97
[2022-11-29] MEDS ORDERED: POTASSIUM CHL 20 Meq TABLET PO SCH (10:00)
[2022-11-29] MEDS: LABETALOL HCL 200 MG TAB PO SCH (10:15)
[2022-11-29] MEDS: DOCUSATE CALCIUM 240 MG CAP PO SCH (10:16)
[2022-11-29] MEDS: DOCUSATE SOD 100 MG CAP PO SCH (10:17)
[2022-11-29] MEDS: MILK OF MAGNESIA 30ML SUSP PO SCH (10:17)
[2022-11-29] MEDS: FUROSEMIDE 40 MG TAB PO SCH (10:17)
[2022-11-29 11:16] VITALS: BP 152/79; PULSE 66; RESP 16; TEMP 97.5; O2SAT 97
[2022-11-29] MEDS ORDERED: NIFEdipine 10 MG CAP PO ONE (11:30)
[2022-11-29 12:46] VITALS: BP 111/74; PULSE 85
== END 2022-11-29 13:11 | disposition home or self-care (01) | DRG 539 ==
LOC: LDRP 10:07 → OBSVTOIN 13:05 → LDRP 13:06
PROVIDERS: ADMIT Obstetrics & Gynecology; ATTEND Obstetrics & Gynecology
PROC: 0UB70ZZ Excision of Bilateral Fallopian Tubes, Open Approach (ICD-10-PCS; 2022-11-25)
PROC: 10D00Z1 Extraction of Products of Conception, Low, Open Approach (ICD-10-PCS; principal; 2022-11-25 13:21)
DX: O24.429 Gestational diabetes mellitus in childbirth, unspecified control (principal); O11.4 Pre-existing hypertension with pre-eclampsia, complicating childbirth; O61.9 Failed induction of labor, unspecified; O77.0 Labor and delivery complicated by meconium in amniotic fluid; O76 Abnormality in fetal heart rate and rhythm complicating labor and delivery; R50.82 Postprocedural fever; Z37.0 Single live birth; Z3A.38 38 weeks gestation of pregnancy; Z30.2 Encounter for sterilization
CPT/HCPCS: 36415; 59025; 62282; 76818; 80053; 80307; 81001; 81002; 82570; 82948; 82962; 83735; 84156; 84550; 85025; 85379; 85610; 85730; 86592; 86850; 86900; 86901; 94760; 94762; 96360; 96361; 96365; 96366; 96374; 96375; G0378; J0131; J0690; J2250; J2405; J2543; J2590